=== PATIENT | female | born 1985 | race Hispanic/Latino ===

== ENCOUNTER 2018-04-13 14:32 | Emergency (ER) | payer OTHER ==
[~2018-04-13] VITALS: Ht 170.2 cm; Wt 177.4 kg
--- OUTSIDE RECORDS SUMMARY | 2018-04-13 14:35 | XMS REPORT | Continuity of Care Document ---
Author Author [facility] Interface Address Unknown Phone Unavailable Problems Problem Status Onset Date Classification Date Reported Comments Source Elevated blood-pressure reading without diagnosis of hypertension 08/23/2017 Diagnosis 08/23/2017 [facility] Shoulder pain 08/23/2017 Diagnosis 08/23/2017 [facility] Pain in throat 08/23/2017 Diagnosis 08/23/2017 [facility] Influenza-like symptoms 08/23/2017 Diagnosis 08/23/2017 [facility] Body mass index 40+ - severely obese 08/23/2017 Diagnosis 08/23/2017 [facility] Pain in Throat 08/23/2017 Problem 08/23/2017 [facility] Shoulder Pain 08/23/2017 Problem 08/23/2017 [facility] Influenza-like Symptoms 08/23/2017 Problem 08/23/2017 [facility] Elevated Blood-pressure Reading without Diagnosis of Hypertension 08/23/2017 Problem 08/23/2017 [facility] Body Mass Index 40+ - Severely Obese 08/23/2017 Problem 08/23/2017 [facility] Acute tonsillitis 06/24/2017 Diagnosis 06/24/2017 [facility] Medications Medication Details Route Status Patient Instructions Ordering Provider Order Date Source Acetaminophen 300 MG / Codeine Phosphate 30 MG Oral Tablet acetaminophen 300 mg-codeine 30 mg tablet Active [facility] Lidocaine Hydrochloride 20 MG/ML Mucous Membrane Topical Solution Lidocaine Viscous 2 % mucosal solution Take 10 mL every 3 hours by oral route as needed. Active [facility] Allergies, Adverse Reactions, Alerts Substance Category Reaction Severity Reaction type Status Date Reported Comments Source Immunizations Immunization Date Given Site Status Last Updated Comments Source influenza, unspecified formulation 02/17/2017 completed [facility] Results Order Name Results Value Reference Range Date Interpretation Comments Source Influenza A negative 08/23/2017 [facility] Influenza B negative 08/23/2017 [facility] RESULT negative 08/23/2017 [facility] SWAB LOCATION Left and Right tonsillar pillars 08/23/2017 [facility] RESULT negative 06/24/2017 [facility] SWAB LOCATION Left and Right tonsillar pillars 06/24/2017 [facility] Influenza A negative 06/24/2017 [facility] Influenza B negative 06/24/2017 [facility] Vital Signs Vital Sign Value Date Comments Source Diastolic (mm Hg) 60 08/23/2017 [facility] Height 67 08/23/2017 [facility] Systolic (mm Hg) 128 08/23/2017 [facility] Weight 386 08/23/2017 [facility] Diastolic (mm Hg) 90 06/24/2017 [facility] Height 67 06/24/2017 [facility] Systolic (mm Hg) 130 06/24/2017 [facility] Weight 397 06/24/2017 [facility] Encounters Location Location Details Encounter Type Encounter Number Reason For Visit Attending Provider ADM Date DC Date Status Source [place] - [facility] - [id number] [facility]-C: [address] [place] [address], Ph. [id number] Mary Todd 06/24/2017 [facility] [place] [facility] [id number] [facility]leyP-C: [address] [place] [address], Ph. [id number] Mary Todd 08/23/2017 [facility] Procedures Procedure Code Date Perfomer Comments Source
--- OUTSIDE RECORDS SUMMARY | 2018-04-13 14:36 | XMS REPORT | Encounter Summary ---
Author Organization Unknown Address [address] [place] [address] Phone [phone] Reason for Visit Right Medical Complaint Instructions 1. Influenza-like symptoms rapid flu (A+B) 2. Pain in throat rapid strep group A, throat sore throat: care instructions 3. Body mass index 40+ - severely obese body mass index: care instructions 4. Shoulder pain shoulder pain: care instructions 5. Elevated blood-pressure reading without diagnosis of hypertension Discussion Note Pt is in NAD; Verbalizes understanding of all instructions with no questions at this time. Plan of Care Patient Instructions Take tylenol over the counter for shoulder pain/headache/fever as per pacakge insert. Do not take at the same time as tylenol # 3 and do not take more that 4 grams of acetaminophen (all forms) per day. Take benzonatate for cough as directed. Take fluticasone as needed for congestion. [place] one spray in each nostril twice a day. Take a warm, steamy shower, blow your nose thereafter, and spray in each nostril. Tilt your head up for about 10 seconds and breath through your mouth. Do not sniff or snort the medication in or else the medication will go to your throat and not be absorbed appropriately. Take medications as prescribed and follow up with a PCP within 2-3 if symptoms worsen as discussed. I recommend PCP or orthopedics evaluation/management of right shoulder pain. Recommend monitor BP at home and document, bring BP log to PCP for review. Recommend follow a low sodium diet and exercise 30-45 mins/d 3-4 days a week once symptoms resolve. Reminders Provider Appointments None recorded. Lab Rapid Strep Group a, Throat 08/23/2017 [facility] Rapid Flu (A+B) 08/23/2017 [facility] Referral None recorded. Procedures None recorded. Surgeries None recorded. Imaging None recorded. Medications Name Start Date acetaminophen 300 mg-codeine 30 mg tablet Medications Administered None recorded. Vitals Height Weight BMI Blood Pressure 5 ft 7 in 386 lbs 60.5 kg/m2 128/60 mm[Hg] Lab Results Date Name Specimen Result Interpretation Description Value Range Status Address 08/23/2017 Rapid Flu (A+B) Influenza a negative [facility]: [facility] Influenza B negative [facility]: [address] [facility] Rapid Strep Group a, Throat Result negative [facility]: [address] [facility] Swab Location Left and Right tonsillar pillars [facility]: [facility] Allergies Code Code System Name Reaction Severity Status Onset NKDA Problems Name Status Onset Date Source Pain in Throat Active 08/23/2017 Shoulder Pain Active 08/23/2017 Influenza-like Symptoms Active 08/23/2017 Elevated Blood-pressure Reading without Diagnosis of Hypertension Active 08/23/2017 Body Mass Index 40+ - Severely Obese Active 08/23/2017 Procedures None recorded. Vaccine List Vaccine Type influenza, unspecified formulation 02/17/2017 Social History Smoking Status Never Smoker Past Encounters 08/23/2017 Influenza-like Symptoms; Pain in Throat; Body Mass Index 40+ - Severely Obese; Shoulder Pain; Elevated Blood-pressure Reading without Diagnosis of Hypertension Mary Todd, [employer]-C: [address] [place] [address], Ph. History of Present Illness [id number] Reported By: Patient HPI: Quality: cannot identify. Duration: 1 days. Severity: subjective temperature. Context: no ill contacts, no tick/insect bites, no recent travel, no new medications. Associated Symptoms: no fever/chills, no muscle aches, no rash, no lethargy, headache, cough, nasal passage blockage (stuffiness), nasal discharge; fever, sore throat, body aches, right ear pain, and chest congestion. Modifying Factors nothing gives relief Musculoskeletal Complaint Reported By: Patient HPI: Location: Location:. Quality: sharp, deep, intermittent. Severity: mild (1- 4), same, pain level 3/10. Duration: intermittent, present for 1-6 months. Onset/Timing: acute, gradual. Context: atraumatic. Alleviating factors: ; tylenol # 3. Aggravating factors: lifting, carrying, twisting, pushing/pulling. Associated Symptoms: no fever/chills, no warmth, no redness, no swelling, no drainage, no ecchymosis, no weakness, no tingling, no numbness, no radiation, no catching/locking, no popping/clicking, no buckling, no grinding, no instability, no weight loss, no change in bowel/bladder habits, no muscle aches, no headache Review of Systems:ROS as noted in the HPI Review of Systems Basic Reported By: Patient Physical Exam Adult Basic, Adult Female Complete Reported By: Patient Constitutional: General Appearance: obese. Level of Distress: NAD. Ambulation: ambulating normally Psychiatric: Mental Status: active and alert. Orientation: to time, to place, to person [place]-Luuaa-Throat: Ears: no lesions on external ear, no outer ear tenderness, EACs clear, TMs clear. Hearing: no hearing loss. Nose: no lesions on external nose, nares patent, no septal deviation, nasal passages clear, no sinus tenderness, nasal discharge--rhinorrhea, post nasal drip. Lips, Teeth, and Gums: no mouth or lip ulcers, no bleeding gums, normal dentition. Oropharynx: moist mucous membranes, no erythema, no exudates, tonsils not enlarged Neck: Lymph Nodes: no cervical LAD Lungs: Respiratory effort: no dyspnea, no tachypnea, no use of accessory muscles, no intercostal retractions. Auscultation: breath sounds normal Cardiovascular: Heart Auscultation: RRR, no murmurs. Pulses including femoral / pedal: normal throughout Musculoskeletal:: Motor Strength and Tone: normal motor strength, normal tone. Joints, Bones, and Muscles: no bony abnormalities, no contractures, no malalignment, no tenderness, limited ROM. Extremities: no cyanosis, no edema, no varicosities, no palpable cord Neurologic: Gait and Station: normal gait, normal station. Cranial Nerves: grossly intact. Sensation: grossly intact. Reflexes: DTRs 2+ bilaterally throughout Back: Thoracolumbar Appearance: normal curvature
--- OUTSIDE RECORDS SUMMARY | 2018-04-13 14:36 | XMS REPORT | Encounter Summary ---
Author Organization Unknown Address [address] [place] [address] Phone [phone] Reason for Visit Medical Complaint Instructions 1. Acute tonsillitis Lidocaine Viscous 2 % mucosal solution rapid strep group A, throat tonsillitis: care instructions culture, respiratory 2. Influenza-like symptoms rapid flu (A+B) 3. Elevated blood-pressure reading without diagnosis of hypertension 4. Body mass index 40+ - severely obese Discussion Note Pt is in NAD; Verbalizes understanding of all instructions with no questions at this time. Plan of Care Patient Instructions Gargle and spit viscous lidocaine as needed for sore throat as directed. Take fluticasone (flonase) over the counter as needed for congestion. [place] one spray in each nostril twice a day. Take a warm, steamy shower, blow your nose thereafter, and spray in each nostril. Tilt your head up for about 10 seconds and breath through your mouth. Do not sniff or snort the medication in or else the medication will go to your throat and not be absorbed appropriately. Take Mucinex DM or Delsym for cough as per package insert. Alternate with Ibuprofen and acetaminophen every 4hrs as needed for pain/fever/headache. Proper hydration and rest. Return to work/school if free of fever for 24-hrs. Do not share any utensils/cups, no kissing, recommend hand washing after coughing/sneezing/blowing nose and cover face when you do so. Take medications as prescribed. Return to clinic or follow up with your PCP within 2-3 days if symptoms worsen as discussed. We will call you with your lab results. Recommend monitor BP at home and document, bring BP log to PCP for review. Recommend follow a low sodium/fat/carb diet and exercise 30-45 mins/d 3-4 days a week Reminders Provider Appointments None recorded. Lab Rapid Flu (A+B) 06/24/2017 [facility] Rapid Strep Group a, Throat 06/24/2017 [facility] Culture, Respiratory 06/24/2017 [facility] Referral None recorded. Procedures None recorded. Surgeries None recorded. Imaging None recorded. Medications Name Start Date Lidocaine Viscous 2 % mucosal solution Take 10 mL every 3 hours by oral route as needed. Medications Administered None recorded. Vitals Height Weight BMI Blood Pressure 5 ft 7 in 397 lbs 62.2 kg/m2 130/90 mm[Hg] Lab Results Date Name Specimen Result Interpretation Description Value Range Status Address Rapid Strep Group a, Throat Result negative [facility]: [address] [place] [address] Swab Location Left and Right tonsillar pillars [facility]: [address] [place] [address] Rapid Flu (A+B) Influenza a negative [facility]: [address] [place] [address] Influenza B negative [facility]: [address] [place] [address] Allergies Code Code System Name Reaction Severity Status Onset NKDA Problems None recorded. Procedures None recorded. Vaccine List Vaccine Type influenza, unspecified formulation 02/17/2017 Social History Smoking Status Never Smoker Past Encounters 06/24/2017 Acute Tonsillitis; Influenza-like Symptoms; Elevated Blood-pressure Reading without Diagnosis of Hypertension; Body Mass Index 40+ - Severely Obese Mary Todd, [employer] HAND-C: [address] [place] [address], Ph. History of Present Illness Throat-Oral Complaint Reported By: Patient HPI: Location: throat. Quality: sore throat, congested. Severity: moderate, pain level 6/10. Duration: 1-2 days. Onset/Timing: sudden. Context: no sick contacts, no foreign travel, non-smoker. Modifying factors: OTC medication. Associated Symptoms: no fever, no headache, no sputum production, no shortness of breath, no wheezing, no change in number of pillows needed to sleep at night, no sweats, no significant weight gain, no significant weight loss, no morning cough, no vomiting, no diarrhea, no rash, no nausea, fever, body aches, sore throat; nasal congestion, rhinorrhea, chills, and dry cough [id number] Reported By: Patient HPI: Quality: symptoms worse in the evening. Duration: 1-2 days. Severity: subjective temperature. Context: no ill contacts, no tick/insect bites, no recent travel, no new medications. Associated Symptoms: no headache, no muscle aches, no rash, no lethargy, fever/chills, cough, nasal passage blockage (stuffiness), nasal discharge; sore throat and body aches. Modifying Factors OTC medication Review of Systems:ROS as noted in the HPI Review of Systems Basic Reported By: Patient Physical Exam Adult Basic, Adult Female Complete Reported By: Patient Constitutional: General Appearance: obese. Level of Distress: NAD. Ambulation: ambulating normally Psychiatric: Mental Status: active and alert. Orientation: to time, to place, to person Nyx-Ervm-Uwjhp-Throat: Ears: no lesions on external ear, no outer ear tenderness, EACs clear, TMs clear. Hearing: no hearing loss. Nose: no lesions on external nose, nares patent, no septal deviation, nasal passages clear, no sinus tenderness, nasal discharge--rhinorrhea, post nasal drip. Lips, Teeth, and Gums: no mouth or lip ulcers, no bleeding gums, normal dentition. Oropharynx: moist mucous membranes, erythema, exudates, tonsils enlarged 3+ Neck: Lymph Nodes: no cervical LAD Lungs: Respiratory effort: no dyspnea, no tachypnea, no use of accessory muscles, no intercostal retractions. Auscultation: breath sounds normal Cardiovascular: Heart Auscultation: RRR, no murmurs Neurologic: Gait and Station: normal gait, normal station
[2018-04-13] MEDS ORDERED: BROMFED DM COU118 ML PO (15:18)
[2018-04-13] MEDS ORDERED: TESSALON PERLE100 MG PEG (15:21)
== END 2018-04-13 16:03 | disposition home or self-care (01) ==
LOC: FSED 14:32
DX: R05 Cough (principal); J00 Acute nasopharyngitis [common cold]; B34.9 Viral infection, unspecified
CPT/HCPCS: 99283